=== PATIENT | male | born 1975 | race Caucasian/White ===

== ENCOUNTER 2019-03-09 09:54 | Emergency (ER) | payer OTHER ==
[~2019-03-09] VITALS: Ht 180.3 cm; Wt 95.3 kg
[2019-03-09 10:06] VITALS: BP 155/109
[2019-03-09] MEDS ORDERED: BACTRIM DS TAB1 EACH PO (10:18)
[2019-03-09] MEDS ORDERED: ONDANSETRON HCL4 M2 PO (10:18)
[2019-03-09] MEDS ORDERED: NORCO 5-325 TA1 EAC1 PO (10:18)
== END 2019-03-09 11:05 | disposition home or self-care (01) ==
LOC: ER 09:54
DX: L02.416 Cutaneous abscess of left lower limb (principal); J44.9 Chronic obstructive pulmonary disease, unspecified; F17.210 Nicotine dependence, cigarettes, uncomplicated

== ENCOUNTER 2019-03-13 08:47 | Emergency (ER) | payer OTHER ==
[~2019-03-13] VITALS: Ht 180.3 cm; Wt 95.3 kg
[~2019-03-13 08:47] MED LIST: BACTRIM DS TAB1 EACH PO; NORCO 5-325 TA1 EAC1 PO; ONDANSETRON HCL4 M2 PO
[2019-03-13] MEDS ORDERED: SENNA-DOCUSATE1 EAC1 PO (10:07)
[2019-03-13] MEDS ORDERED: NORCO 5-325 TA1 EAC1 PO (10:07)
[2019-03-13 10:45] VITALS: BP 134/94
== END 2019-03-13 11:13 | disposition home or self-care (01) ==
LOC: ER 08:47
DX: L02.416 Cutaneous abscess of left lower limb (principal); J44.9 Chronic obstructive pulmonary disease, unspecified; F17.210 Nicotine dependence, cigarettes, uncomplicated; Z88.5 Allergy status to narcotic agent